=== PATIENT | male | born 1970 | race Two or more races ===

== ENCOUNTER 2023-07-27 06:51 | Inpatient (IN) | payer MEDICAID ==
[~2023-07-27] VITALS: Ht 160 cm; Wt 75.7 kg
[2023-07-27 08:11] LABS: Basophils # (auto) 0 10 ^3/uL (0-0.2); Basophils % (auto) 0.3 % (0.0-2.0); Eosinophils # (auto) 0.2 10 ^3/uL (0-0.8); Eosinophils % (auto) 2.1 % (0.0-7.0); Hematocrit 45.1 % (41.0-53.0); Hemoglobin 15.7 g/dL (13.5-17.5); Lymphocytes # (auto) 1.5 10 ^3/uL (0.4-5.4); Mean Corpuscular Hemoglobin 32.3 pg (28.0-32.0); Mean Corpuscular Hgb Conc. 34.7 g/dL (32.0-36.0); Monocytes # (auto) 1.1 10 ^3/uL (0-1.3); Monocytes % (auto) 9.4 % (0.0-12.0); Neutrophils # (auto) 8.7 10 ^3/uL (1.6-8.6); Neutrophils % (auto) 75.2 % (37.0-80.0); Red Blood Cells 4.85 10^6/uL (4.5-5.90); Red Cell Distribution Width 13.3 % (11.8-14.3); White Blood Cell 11.5 10^3/uL (4.4-10.8)
[2023-07-27 08:29] LABS: Alanine Aminotransferase 30 U/L (7-40); Albumin 4.3 g/dL (3.2-4.8); Alkaline Phosphatase 106 U/L (46-116); Anion Gap 6 (5-15); Aspartate Aminotransferase 22 U/L (13-40); BUN/Creatinine Ratio 13.6 (10.0-20.0); Bilirubin, Direct 0.3 mg/dL (<0.3); Blood Urea Nitrogen 11 mg/dL (9-23); Carbon Dioxide 28 mmol/L (20-30); Chloride 106 mmol/L (98-107); Glucose 90 mg/dL (74-106); Potassium 4.1 mmol/L (3.5-5.1); Sodium 140 mmol/L (136-145); Total Protein 6.4 g/dL (5.7-8.2)
[2023-07-27] MEDS: ASPirin-EC 325mg tab PO ONE (08:46)
[2023-07-27 09:12] LABS: Lipase 25 U/L (12-53)
[2023-07-27] MEDS: VANCOMYCIN 1GM/200ML 200 ML IV ONE (09:45)
[2023-07-27 10:41] LABS: Urine Bacteria NONE SEEN /hpf (None Seen); Urine Blood Negative /uL (Negative); Urine Clarity Clear (Clear); Urine Color Yellow (Yellow); Urine Protein, UAD Negative (Negative); Urine Specific Gravity 1.018 (1.001-1.035); Urine Urobilinogen Normal (Negative); Urine WBC <1 /hpf (0 - 3)
[2023-07-27] MEDS ORDERED: NITROGLYCERIN 0.4 MG SL TAB SL PRN (11:15)
[2023-07-27] MEDS ORDERED: MORPHINE SULFATE INJ 2 MG/ml SYRG IV PRN (11:15)
[2023-07-27] MEDS: cefTRIAXone 1GM/50ML D5W 50 ML IV ONE (11:24)
[2023-07-27] MEDS: metroNIDAZOLE 500MG/100ML 100 ML IV SCH (14:25)
[2023-07-27] MEDS: ATORVASTATIN 20 MG TAB PO ONE (22:34)
[2023-07-28] VITALS (8 sets, daily range): BP systolic 101–117; BP diastolic 63–78; PULSE 59–90; RESP 16–20; TEMP 97.1–99.1; O2SAT 94–99
[2023-07-28] MEDS ORDERED: CARB100T4 PO (00:44)
[2023-07-28 07:27] LABS: Basophils # (auto) 0 10 ^3/uL (0-0.2); Basophils % (auto) 0.4 % (0.0-2.0); Eosinophils # (auto) 0.2 10 ^3/uL (0-0.8); Eosinophils % (auto) 2.3 % (0.0-7.0); Hematocrit 42.2 % (41.0-53.0); Hemoglobin 14.8 g/dL (13.5-17.5); Lymphocytes # (auto) 1.6 10 ^3/uL (0.4-5.4); Lymphocytes % (auto) 18.7 % (10.0-50.0); Mean Corpuscular Hemoglobin 32.7 pg (28.0-32.0); Mean Corpuscular Volume 93.5 fL (80.0-100.0); Monocytes % (auto) 11.4 % (0.0-12.0); Neutrophils # (auto) 5.7 10 ^3/uL (1.6-8.6); Neutrophils % (auto) 67.2 % (37.0-80.0); Red Blood Cells 4.51 10^6/uL (4.5-5.90); Red Cell Distribution Width 13.6 % (11.8-14.3); White Blood Cell 8.5 10^3/uL (4.4-10.8)
[2023-07-28 07:31] LABS: Anion Gap 6 (5-15); Carbon Dioxide 26 mmol/L (20-30); Chloride 108 mmol/L (98-107); Potassium 3.8 mmol/L (3.5-5.1); Sodium 140 mmol/L (136-145)
[2023-07-28 07:32] LABS: Calcium 8.7 mg/dL (8.5-10.1)
[2023-07-28 07:37] LABS: Blood Urea Nitrogen 7 mg/dL (9-23); Glucose 82 mg/dL (74-106); Triglycerides 86 mg/dL (< 150)
[2023-07-28 07:38] LABS: LDL Cholesterol 79 mg/dL (< 100)
[2023-07-28 07:39] LABS: Cholesterol 158 mg/dL (< 200); HDL Cholesterol 67 mg/dL (40-59)
[2023-07-28 07:53] LABS: Magnesium 1.9 mg/dL (1.6-2.6)
[2023-07-28 09:00] LABS: Hepatitis B Surface Antigen Negative (Negative)
[2023-07-28 09:21] LABS: Hepatitis C Antibody Negative (Negative)
[2023-07-28] MEDS: cefTRIAXone 1GM/50ML D5W 50 ML IV SCH (10:00)
[2023-07-28] MEDS: carBAMazepine 200 MG/10 ML Ud ORAL Susp PO ONE (11:45)
[2023-07-28] MEDS: ATORVASTATIN 20 MG TAB PO SCH (21:32)
[2023-07-28] MEDS: carBAMazepine 200 MG/10 ML Ud ORAL Susp PO SCH (21:36)
[2023-07-29 05:00] VITALS: BP 106/65; PULSE 63; RESP 18; TEMP 97.8; O2SAT 94
[2023-07-29 05:55] LABS: Basophils # (auto) 0 10 ^3/uL (0-0.2); Basophils % (auto) 0.5 % (0.0-2.0); Eosinophils # (auto) 0.3 10 ^3/uL (0-0.8); Eosinophils % (auto) 4.2 % (0.0-7.0); Hematocrit 44.8 % (41.0-53.0); Hemoglobin 15.3 g/dL (13.5-17.5); Lymphocytes # (auto) 1.6 10 ^3/uL (0.4-5.4); Lymphocytes % (auto) 23.8 % (10.0-50.0); Mean Corpuscular Hemoglobin 31.9 pg (28.0-32.0); Mean Corpuscular Volume 93.8 fL (80.0-100.0); Monocytes # (auto) 0.9 10 ^3/uL (0-1.3); Monocytes % (auto) 12.9 % (0.0-12.0); Neutrophils # (auto) 3.9 10 ^3/uL (1.6-8.6); Neutrophils % (auto) 58.6 % (37.0-80.0); Red Blood Cells 4.78 10^6/uL (4.5-5.90); Red Cell Distribution Width 13.6 % (11.8-14.3); White Blood Cell 6.6 10^3/uL (4.4-10.8)
[2023-07-29 06:15] LABS: Calcium 8.6 mg/dL (8.7-10.4); Chloride 108 mmol/L (98-107); Potassium 3.9 mmol/L (3.5-5.1); Sodium 140 mmol/L (136-145)
[2023-07-29 06:16] LABS: Anion Gap 6 (5-15); Carbon Dioxide 26 mmol/L (20-30)
[2023-07-29 06:21] LABS: BUN/Creatinine Ratio 12.9 (10.0-20.0); Blood Urea Nitrogen 8 mg/dL (9-23); Glucose 89 mg/dL (74-106)
[2023-07-29 06:22] LABS: Magnesium 2.2 mg/dL (1.6-2.6)
[2023-07-29 08:00] VITALS: BP 105/60; PULSE 54; RESP 19; TEMP 97.7; O2SAT 99
[2023-07-29 08:21] VITALS: BP 105/60; PULSE 54; RESP 19; TEMP 97.7; O2SAT 99
[2023-07-29] MEDS ORDERED: MAGN400T40 PO (10:31)
[2023-07-29] MEDS ORDERED: METR-344 PO (10:43)
[2023-07-29] MEDS ORDERED: LEVO500T91 PO (10:43)
[2023-07-29 12:11] LABS: INR 1.1 (0.9-1.15); Partial Thromboplastin Time 30.6 SEC (24.5-34.5); Prothrombin Time 11.5 sec (9.3-11.8)
[2023-07-29 13:38] VITALS: BP 109/67; PULSE 63; RESP 16; TEMP 98.2; O2SAT 97
[2023-07-29 13:48] VITALS: BP 109/67; PULSE 63; RESP 16; TEMP 98.2; O2SAT 97
== END 2023-07-29 15:12 | disposition home or self-care (01) | DRG 244 ==
LOC: ER 06:51 → OVERFLOW 11:16 → WEST WING 23:41 → TELE-WESTW 07-28 12:11
PROVIDERS: ADMIT Internal Medicine Geriatric Medicine; ATTEND Internal Medicine Geriatric Medicine
DX: K57.32 Diverticulitis of large intestine without perforation or abscess without bleeding (principal); I21.A1 Myocardial infarction type 2; E66.9 Obesity, unspecified; Z68.29 Body mass index [BMI] 29.0-29.9, adult; L40.9 Psoriasis, unspecified; Z87.891 Personal history of nicotine dependence
CPT/HCPCS: 36415; 71045; 74176; 80048; 80061; 80076; 81001; 82306; 82607; 83036; 83605; 83690; 83735; 83880; 84443; 84484; 85025; 85610; 85730; 86803; 87340; 93005; 93306; G0378; J3490

== ENCOUNTER 2024-01-27 00:11 | Emergency (ER) | payer MEDICAID ==
[~2024-01-27] VITALS: Ht 162.6 cm; Wt 78.0 kg
[~2024-01-27 00:11] MED LIST: CARB100T4 PO; LEVO500T91 PO; MAGN400T40 PO; METR-344 PO
[2024-01-27 00:26] VITALS: BP 124/65; PULSE 76; RESP 18; TEMP 99; O2SAT 97
[2024-01-27 01:21] LABS: Rapid Influenza A Negative (Negative); Rapid Influenza B Negative (Negative)
[2024-01-27 01:23] LABS: COVID19 ANTIGEN SOFIA FIA POSITIVE (NEGATIVE)
== END 2024-01-27 03:34 | disposition home or self-care (01) ==
LOC: ER 00:11
DX: U07.1 COVID-19 (principal); Z79.899 Other long term (current) drug therapy
CPT/HCPCS: 36415; 87426; 87804